=== PATIENT | female | born 1990 | race African-American/Black ===

== ENCOUNTER 2017-12-22 21:25 | Emergency (ER) | payer OTHER ==
[2017-12-22 21:35] VITALS: BP 132/87; PULSE 84; TEMP 99.1; BMI 30.2
[2017-12-22] MEDS ORDERED: VANCOMYCIN 1,000 MG VIAL (RESTRICTED TO ID ONLY) ONE (22:52)
[2017-12-22] MEDS ORDERED: VANCOMYCIN 1 GRAM (PRE-DOCKED) 1,000 MG/250 ML BAG IVPB ONE (23:00)
--- NOTE | 2017-12-22 23:01 | PDOC ---
History of Present Illness - General Chief Complaint: Wound Stated Complaint: BREAST REDUCTION, SUTURE LINE OPENED Time Seen by Provider: 12/22/17 21:39 - History of Present Illness Initial Comments: This 27 year old female, otherwise healthy, presents with right breast incision pain and discharge. Patient had breast reduction surgery performed 3 weeks ago in [place] (patient states that she is from this area but had surgery in [place] because procedure was less expensive there). Patient also states that bilateral implants were placed during the procedure. She reports that wounds were healing well until approximately one week ago when she noted separation of incision around the right nipple. She also noted discharge from the incision with swelling/redness/pain. Steri-Strips were purchased and placed on the wound. Other than mild headache, patient has no fever/chills or other symptoms. No history of poor wound healing/cellulitis/abscess formation. Patient had abdominoplasty performed in the [place] a few years ago during which she had no wound healing problems. No history of MRSA or other resistant organism infection/colonization. On no medications No known ALLERGIES Past History - Past Medical History Allergies/Adverse Reactions: Allergies Allergy/AdvReac Type Severity Reaction Status Date / Time No Known Allergies Allergy Verified 12/22/17 21:27 Home Medications: Ambulatory Orders Clindamycin HCl 300 mg PO QID #28 capsule 12/23/17 COPD: No Other medical history: DENIES - Immunization History Immunization Up to Date: Yes - Suicide/Smoking/Psychosocial Hx Smoking History: Current every day smoker Have you smoked in the past 12 months: Yes Number of Cigarettes Smoked Daily: 5 Information on smoking cessation initiated: Yes 'Breaking Loose' booklet given: 12/22/17 Hx Alcohol Use: No Drug/Substance Use Hx: No Substance Use Type: None Review of Systems - Review of Systems Able to Perform ROS?: Yes Comments:: 12 point review of systems is negative except for what is noted in the history of present illness *Physical Exam - Vital Signs Last Vital Signs Temp Pulse Resp BP Pulse Ox 99.1 F 84 18 132/87 100 12/22/17 21:29 12/22/17 21:29 12/22/17 21:29 12/22/17 21:29 12/22/17 21:29 - Physical Exam Comments: GENERAL: Adult female, alert and oriented 3 in no acute distress HEAD: Normal with no signs of trauma. EYES: PERRLA, EOMI, sclera anicteric, conjunctiva clear. ENT: Ears normal, nares patent, oropharynx clear without exudates. Dry mucous membranes. NECK: Normal range of motion, supple without lymphadenopathy, JVD, or masses. CHEST WALL: Right breast incision- Steri-Strips in place around nipple with purulent discharge Breast is moderately edematous/erythematous/tender; no fluctuance noted No discharge or separation lower incision line Left breast incision-0.5 cm dehiscence at lateral lower incision but no tenderness/discharge of remainder of the wounds LUNGS: Clear to auscultation without wheezing/rales/rhonchi HEART:Regular rate and rhythm, normal S1 and S2 without murmur, rub or gallop. ABDOMEN:.normal bowel sounds No guarding,tenderness or rebound.No masses No distention. EXTREMITIES: Normal range of motion, no edema. No clubbing or cyanosis. No erythema, or tenderness. NEUROLOGICAL: Cranial nerves II through XII grossly intact. Normal speech. No focal neurological deficits. MUSCULOSKELETAL: Back non-tender to palpation, no CVA tenderness SKIN: Warm, Dry, normal turgor, no rashes or lesions noted. ED Treatment Course - LABORATORY CBC & Chemistry Diagram: 12/22/17 22:50 12/22/17 22:50 Medical Decision Making - Medical Decision Making This 27-year-old woman who is 3 weeks S/P breast reduction (implants placed also) presents with wound infection of the right breast. Breast is erythematous , edematous and tender with purulent discharge and separation around the nipple incision. Culture of discharge from nipple incision sent for culture and sensitivity. CBC and chemistry profile sent. CBC is normal without elevation of white blood cell count. Chemistry profile notable only for evidence of prerenal azotemia with BUN of 14 and creatinine of less than's 0.6. Otherwise, no evidence of abnormality seen on the chemistry profile. Patient given vancomycin 1 g IV. Patient will be treated for presumed MRSA; prescription for clindamycin 300 mg 4 times a day for one week sent to her pharmacy. Patient has no surgical follow-up in this area; she will be given referral information for Dr. Benson. She should call the office tomorrow to arrange follow-up appointment. She should return to the emergency room if she has high fever/worsening pain/profuse discharge or separation of wound *DC/Admit/Observation/Transfer Diagnosis at time of Disposition: Cellulitis of breast Wound cellulitis after surgery Qualifiers: Encounter type: initial encounter Qualified Code(s): T81.4XXA - Infection following a procedure, initial encounter - Discharge Dispostion Disposition: HOME Condition at time of disposition: Stable - Prescriptions Prescriptions: Clindamycin HCl 300 mg PO QID #28 capsule - Referrals Referrals: Christal Benson MD [Staff Physician] - Call tomorrow - Patient Instructions Printed Discharge Instructions: DI for Wound Infection Additional Instructions: Clindamycin 300 mg 4 times a day for 1 week Keep Steri-Strip in place until seen by Dr. Benson Continue Tylenol/Motrin/Aleve as needed for pain Call Dr. Benson (plastic surgeon) office tomorrow to arrange follow-up within 3- 4 days Return to ER if you have worsening pain/fever/persistent discharge from wound - Post Discharge Activity
[2017-12-22 23:05] LABS: BASO % 0.3 % (0-2.0); EOS % 2.7 % (0-4.5); HEMATOCRIT 38.1 % (32.4-45.2); HEMOGLOBIN 13.3 GM/dl (10.7-15.3); LYMPH % 33.2 % (8-40); MCH 31.1 pg (25.7-33.7); MCHC 34.8 g/dl (32.0-36.0); MEAN CELL VOLUME 89.3 fl (80-96); MEAN PLT VOLUME 7.9 fl (7.5-11.1); MONO % 8.3 % (3.8-10.2); NEUT % 55.5 % (42.8-82.8); PLATELET COUNT 350 K/MM3 (134-434); RBC 4.26 M/mm3 (3.60-5.2); RDW 13.3 % (11.6-15.6)
[2017-12-22 23:14] LABS: ALBUMIN 3.9 g/dl (3.5-5.0); ALK PHOS 60 U/L (32-92); ANION GAP 7 (8-16); BLOOD UREA NITROGEN 14 mg/dl (7-18); CALCIUM 9.3 mg/dl (8.4-10.2); CHLORIDE 101 mmol/L (98-107); CO2 27 mmol/L (22-28); GLUCOSE,RANDOM 103 mg/dl (74-106); POTASSIUM 3.9 mmol/L (3.5-5.1); SGOT/AST 17 U/L (10-42); SGPT/ALT 12 U/L (10-40); SODIUM 135 mmol/L (136-145); TOT PROT 7.2 g/dl (6.4-8.3)
[2017-12-22 23:15] LABS: BILIRUBIN,TOTAL < 0.3 mg/dl (0.2-1.0); CREATININE < 0.6 mg/dl (0.6-1.3)
== END 2017-12-23 00:12 | disposition home or self-care (01) ==
LOC: FER 21:25
DX: T81.4XXA Infection following a procedure, initial encounter (principal); N61.0 Mastitis without abscess
CPT/HCPCS: 36415; 80053; 85025; 87040; 87070; 87186; 87205; 96365; 99281-25

== ENCOUNTER 2020-09-02 22:50 | Emergency (ER) | payer OTHER ==
[2020-09-02 23:15] VITALS: BP 130/76; PULSE 84; TEMP 98; BMI 29.8
[2020-09-02] MEDS ORDERED: diphenhydrAMINE HCL 50 MG CAPSULE PO ONE (23:35)
[2020-09-02] MEDS ORDERED: diphenhydrAMINE HCL 50 MG CAPSULE ONE (23:37)
[2020-09-02] MEDS ORDERED: predniSONE 20 MG TABLET (UD) ONE (23:40)
[2020-09-03] MEDS ORDERED: predniSONE 20 MG TABLET (UD) PO SCH (10:00)
== END 2020-09-02 23:42 | disposition home or self-care (01) ==
LOC: FER 22:50
DX: L23.89 Allergic contact dermatitis due to other agents (principal)
CPT/HCPCS: 99283-25

== ENCOUNTER 2022-03-14 08:45 | Emergency (ER) | payer OTHER ==
[2022-03-14 08:53] VITALS: BP 115/72; PULSE 81; RESP 20; TEMP 97.8; BMI 30.4
[2022-03-14] MEDS ORDERED: IBUPROFEN 100 MG/5 ML UNIT DOSE CUPS PO ONE (09:05)
[2022-03-14] MEDS ORDERED: IBUPROFEN 100 MG/5 ML UNIT DOSE CUPS ONE (09:17)
[2022-03-14 12:15] LABS: THROAT:GRP A STREP NOT DETECTED (NOTDETECTED)
== END 2022-03-14 09:46 | disposition home or self-care (01) ==
LOC: FER 08:45
DX: J02.9 Acute pharyngitis, unspecified (principal)
CPT/HCPCS: 0241U-QW; 87651; 99283-25